=== PATIENT | female | born 1975 | race Caucasian/White ===

== ENCOUNTER 2019-10-27 21:45 | Emergency (ER) | payer OTHER, SELFPAY ==
[2019-10-27 22:03] VITALS: BP 122/73; PULSE 77; RESP 13; TEMP 36.8; O2SAT 95
[2019-10-27] MEDS: ONDANSETRON INJ 4 MG/2 ML VIAL IV PUSH (23:04)
[2019-10-27] MEDS: SODIUM CHLORIDE 0.9% IV 1,000 ML 999 ML IV CONT (23:04)
[2019-10-27 23:08] LABS: Basophils Absolute Auto 0.03 K/mm3 (0.00-0.10); Basophils Percent Auto 0.3 % (0.0-1.0); Hematocrit 39.3 % (35.0-49.0); Hemoglobin 13.9 g/dL (12.0-15.0); Immature Granulocyte Absolute 0.03 K/mm3 (0.00-0.00); Immature Granulocyte Percent A 0.3 % (0.0-0.0); Lymphocytes Absolute Auto 0.56 K/mm3 (1.10-4.50); Lymphocytes Percent Auto 6.5 % (18.0-42.0); Mean Corpuscular HGB Conc 35.4 g/dL (32.0-36.0); Mean Corpuscular Hemoglobin 32.1 pg (27.0-31.0); Mean Corpuscular Volume 90.8 fL (78.0-102.0); Mean Platelet Volume 10.6 fl (9.2-11.8); Monocytes Absolute Auto 0.16 K/mm3 (0.10-0.90); Monocytes Percent Auto 1.9 % (2.0-11.0); Neutrophils Absolute Auto 7.8 K/mm3 (1.7-7.2); Platelet Count Result 227 K/mm3 (150-420); Red Blood Count 4.33 M/mm3 (4.20-5.40); White Blood Count 8.6 K/mm3 (4.8-10.8)
[2019-10-27 23:25] LABS: Alanine Aminotransferase 17 U/L (14-59); Albumin Level 4.5 g/dL (3.4-5.0); Alkaline Phosphatase 64 U/L (46-116); Anion Gap 15.8 mmol/L (7-16); Aspartate Amino Transferase 21 U/L (15-37); Bilirubin,Total 0.5 mg/dL (0.00-1.00); Blood Urea Nitrogen 16 mg/dL (7-18); Calcium 8.7 mg/dL (8.5-10.1); Carbon Dioxide 25 mmol/L (21-32); Chloride 100 mmol/L (98-108); Estimated CRCL calculation 51 ml/min; Estimated Glomerular Filt Rate > 60; Glucose 117 mg/dL (70-99); Osmolality Calculated 286 mOsm/kg (285-295); Potassium 3.8 mmol/L (3.5-5.1); Sodium 137 mmol/L (136-145); Total Protein 7.8 g/dL (6.4-8.2)
[2019-10-27] MEDS: PANTOPRAZOLE SODIUM IV 40 MG VIAL IV PUSH (23:34)
--- NOTE | 2019-10-27 23:35 | ED.GENADULT ---
HPI - General Adult General Chief complaint: Nausea/Vomiting/Diarrhea Stated complaint: throwing up, fever Time Seen by Provider: 10/27/19 22:20 Source: patient Mode of arrival: ambulatory Limitations: no limitations History of Present Illness HPI narrative: Pavel is a very pleasant 44-year-old female patient. She presents ambulatory to the emergency room. She states that she started feeling sick at about 6:00 p.m.. She had nausea and vomiting. There is no history of diarrhea. She feels congested. She felt that she had fever the in the emergency room a temperature was noted to be 36.8? C only which is 98.2? F she denies any abdominal pain. No other complaint Onset (ago): hour(s) ( started around 6:00 p.m.) Severity: moderate Pain Consistency: other ( no pain) Relieving factors: none Exacerbating factors: none Associated symptoms: other ( see HPI narrative) Treatments prior to arrival: none Related Data Allergies Allergy/AdvReac Type Severity Reaction Status Date / Time No Known Allergies Allergy Unknown Unverified 09/01/19 15:47 Review of Systems Review of Systems: All systems reviewed & are unremarkable except as noted in HPI and below Constitutional: Constitutional: Reports as per HPI, Reports no additional constitutional complaints, Denies chills and Denies fever(s) Eyes: Eyes: Reports as per HPI and Denies change in vision ENT: Reports system reviewed and no additional complaints, except as documented, Reports nasal congestion and Denies sore throat Cardiovascular: Cardiovascular: Reports as per HPI, Reports no additional cardiovascular complaints, Denies chest pain and Denies radiating jaw, neck or arm pain Respiratory: Respiratory: Reports as per HPI, Reports no additional respiratory complaints, Denies cough and Denies dyspnea Gastrointestinal: Gastrointestinal: Reports as per HPI, Reports nausea and Reports vomiting Genitourinary: Genitourinary: Reports no additional female genitourinary complaints, Denies hematuria and Denies dysuria Musculoskeletal: Musculoskeletal: Reports no additional musculoskeletal complaints and Denies back pain Integumentary/Breasts: Skin/Breast: Reports system reviewed and no additional complaints, except as docu, Denies erythema and Denies rash Neurologic: Reports system reviewed and no additional complaints, except as documented, Reports as per HPI, Denies vertigo, Denies syncope, Denies headache(s), Denies focal weakness and Denies numbness Psychiatric: Psychiatric: Reports no additional psychiatric complaints Endocrine: Endocrine: Reports no additional endocrine complaints and Denies polydipsia Hematologic/Lymphatic: Hematologic/Lymphatic: Reports no additional hematologic/lymphatic complaints, Denies easy bleeding and Denies easy bruising Allergic/Immunologic: Allergic/Immunologic: Reports no additional allergic/immunologic complaints, Denies lip swelling and Denies tongue swelling PMFSH Past Medical History Medical History (Updated 10/28/19 @ 00:17 by Olivier Hendrix MD) No acute medical problems Surgical History Surgical History (Updated 10/27/19 @ 23:44 by Olivier Hendrix MD) History of partial thyroidectomy Family History Family History (System 09/01/19 @ 15:47 by Bessy Sales) Other Diabetes mellitus Family history of coronary artery disease Family history of malignant neoplasm of breast Social History Social History (System 09/01/19 @ 15:47 by Bessy Sales) Smoking status: Never smoker Alcohol intake: current Exam Const: General: no acute distress ( mild distress) and alert; No diaphoretic Nutritional Appearance: well nourished and thin Orientation/consciousness: patient oriented x3 Limitations: no limitations HENMT: Ears: TM's normal bilaterally and EAC's normal General nose exam: Normal nares present ( nasal congestion) Mouth: Yes dry mucous membranes Eyes: Conjunctivae: conjunctivae normal Pupils: Equal
[2019-10-28 00:06] LABS: Influenza Control Valid (Valid)
[2019-10-28] MEDS: DEXAMETHASONE SOD PHOS INJ 4 MG/ML VIAL IV PUSH (00:23)
[2019-10-28 00:24] VITALS: BP 98/54; PULSE 77; RESP 12; O2SAT 96
[2019-10-28] MEDS: METOCLOPRAMIDE HCL INJ 10 MG/2 ML VIAL 5 MG IV PUSH (00:24)
== END 2019-10-28 00:31 | disposition home or self-care (01) ==
PROVIDERS: Emergency Provider Surgery; PCP Family Medicine
DX: B34.9 Viral infection, unspecified (principal)
CPT/HCPCS: 36415; 80053; 85025; 87081; 87804; 87880; 96361; 96374; 96375; 99283; 99284; C9113; J1100; J2405; J2765; J7030

== ENCOUNTER 2020-01-02 07:38 | Outpatient (CLI) | payer OTHER, SELFPAY ==
[2020-01-02 08:02] LABS: Basophils Absolute Auto 0.1 K/mm3 (0.0-0.1); Basophils Percent Auto 1.3 % (0.2-1.2); Eosinophils Absolute Auto 0.1 K/mm3 (0-0.3); Eosinophils Percent Auto 2.9 % (0-4.4); Hemoglobin 14.9 g/dL (12.0-15.0); Immature Granulocyte Absolute 0.01 K/mm3 (0.00-0.031); Immature Granulocyte Percent A 0.3 % (0-0.5); Lymphocytes Absolute Auto 1.15 K/mm3 (0.9-3.2); Mean Corpuscular HGB Conc 34.7 g/dl (32-36); Mean Corpuscular Hemoglobin 31.8 pg (26-34); Mean Corpuscular Volume 91.9 fl (80-100); Mean Platelet Volume 10.8 fl (7.4-10.4); Monocytes Absolute Auto 0.4 K/mm3 (0.1-0.6); Monocytes Percent Auto 9.1 % (2.6-8.5); Neutrophils Absolute Auto 2.2 K/mm3 (1.3-6.7); Neutrophils Percent Auto 56.4 % (45.5-73.1); Platelet Count Result 201 k/mm3 (150-375); Red Blood Count 4.68 M/mm3 (4.2-5.4); Red Cell Distribution Width 12.3 % (11.5-14.5); White Blood Count 3.8 K/mm3 (4.5-10.0)
[2020-01-02 08:52] LABS: Alanine Aminotransferase 11 U/L (4-35); Albumin Level 4.7 g/dL (3.5-5.1); Alkaline Phosphatase 61 U/L (38-126); Amylase 94 U/L (30-110); Aspartate Amino Transferase 23 U/L (14-36); Blood Urea Nitrogen 6 mg/dL (7-17); Calcium 9.6 mg/dL (8.4-10.2); Carbon Dioxide 28 mmol/L (22-30); Chloride 99 mmol/L (98-107); Estimated Glomerular Filt Rate > 60; Glucose 141 mg/dL (65-105); Lipase 45 U/L (23-300); Potassium 4.1 mmol/L (3.4-5.0); Sodium 136 mmol/L (137-145)
[2020-01-02 11:05] LABS: Folic Acid 18.3 ng/mL (2.76->20)
== END 2020-01-02 07:39 | disposition home or self-care (01) ==
PROVIDERS: PCP Family Medicine; Visit Provider Nurse Practitioner Family
DX: R10.9 Unspecified abdominal pain (principal); R11.2 Nausea with vomiting, unspecified; R63.4 Abnormal weight loss
CPT/HCPCS: 36415; 80053; 82150; 82607; 82746; 83036; 83690; 84443; 85025

== ENCOUNTER 2020-01-13 07:20 | Outpatient (CLI) | payer OTHER, SELFPAY ==
--- NOTE | ~2020-01-13 | CT_ITS ---
EXAMINATION: CT abdomen pelvis w con DATE: 01/13/2020 07:59 INDICATION: Generalized abdominal pain. Abnormal weight loss. TECHNIQUE: Computed tomography (CT) of the abdomen and pelvis was performed with 100 mL Omnipaque 350 intravenous contrast. Automated exposure control and iterative reconstruction technique were employe d. The dose-length product was 162.16 mGy-cm. COMPARISON: Abdomen ultrasound 09/08/2019 FINDINGS: The visualized portions of the lung bases are clear without pneumonia or pleural effusion. The heart size is normal. No pericardial effusion. The liver, gallbladder, spleen, pancreas, adrenal glands, and right kidney are normal. There is a small area of focal volume loss of left kidney. The p eriuterine veins and left ovarian vein are enlarged, consistent with pelvic venous insufficiency. The re are no dilated loops of bowel. The appendix is not visualized. The bladder is distended. There are no pathologically enlarged lymph nodes. There is trace pelvic ascites. The bones are unremarkable. IMPRESSION: 1. Pelvic venous insufficiency. Reviewed, dictated and finalized at location A.
== END 2020-01-13 07:21 | disposition home or self-care (01) ==
LOC: ANHIMG 07:28
PROVIDERS: PCP Family Medicine; Visit Provider Nurse Practitioner Family
DX: R10.9 Unspecified abdominal pain (principal); R63.4 Abnormal weight loss; R11.0 Nausea; R19.5 Other fecal abnormalities; I99.8 Other disorder of circulatory system
CPT/HCPCS: 74177; Q9967

== ENCOUNTER 2020-02-07 00:20 | Outpatient (CLI) | payer OTHER, SELFPAY ==
[2020-02-07 16:46] LABS: SARS-CoV-2 RNA PCR Negative
== END 2020-02-07 00:21 | disposition home or self-care (01) ==
LOC: ANHCOVIDDT 00:20
PROVIDERS: PCP Family Medicine; Visit Provider Internal Medicine Gastroenterology
DX: Z01.818 Encounter for other preprocedural examination (principal); Z11.59 Encounter for screening for other viral diseases
CPT/HCPCS: 87635; C9803; U0003

== ENCOUNTER 2020-02-10 01:10 | Day surgery (SDC) | payer OTHER, SELFPAY ==
[2020-02-03 08:39] VITALS: BMI 15.4
[2020-02-10 07:57] VITALS: BMI 15.5
[2020-02-10 07:58] VITALS: BP 104/67; PULSE 40; RESP 13; TEMP 36.3; O2SAT 98
[2020-02-10] MEDS: LACTATED RINGERS 1,000 ML 150 ML IV CONT (08:12)
--- NOTE | 2020-02-10 08:30 | P.PNAN_ITS ---
Anes - Initial Pre Proc Eval Procedure: Operation Date: 02/10/20 09:00 Proposed Procedures p Esophagogastroduodenoscopy & Colonoscopy - Anatoly May MD Date/Time: 02/10/20 08:30 Surgeon: Anatoly May MD Pre Op Diagnosis: wt. loss, rectal bleeding Patient Data Age: 44 Gender: F Height: 5 ft 5 in Weight: 42.2 kg Last Vital Signs Temp 36.3 C L 02/10/20 07:58 Pulse 40 L 02/10/20 07:58 Resp 13 02/10/20 07:58 BP 104/67 02/10/20 07:58 Pulse Ox 98 02/10/20 07:58 Allergies Allergy/AdvReac Type Severity Reaction Status Date / Time No Known Allergies Allergy Unknown Verified 02/10/20 07:46 Home Medications Medication Instructions Recorded Confirmed Type metoclopramide HCl 5 mg tablet 5 mg PO DAILY #90 tablet 01/05/20 02/10/20 Rx Patient hx anesthesia problems: none Family hx anesthesia problems: none [facility] Past Medical History Medical History No acute medical problems Occult blood positive stool Surgical History Surgical History History of partial thyroidectomy Family History Family History Other Diabetes mellitus Family history of coronary artery disease Family history of malignant neoplasm of breast Social History Social History Smoking status: Never smoker Alcohol intake: current Anes - Eval Final PreProcedure Day of Procedure 02/10/20 08:30 Patient weight: thin Heart: regular rate and rhythm Lungs: clear to auscultation Airway: Mallampati scale class II Neurological: alert and oriented Last oral intake: >/= 8 hours ASA classification: II Emergent: no Anesthetic plan: proceed Anesthesia type and monitoring: general GIVS and standard monitoring Informed Consent: The patient's anesthetic plan and its attendant risks and benefits were discussed with the patient/family/POA. Questions were solicited and answers provided to the satisfaction of the patient/family/POA.
--- NOTE | 2020-02-10 09:06 | WPDHPUPDATE1 ---
History and Physical Update Update Date/Time: 02/10/20 09:06 History and Physical has been reviewed, including an updated exam of the patient. There are NO changes in the patient's condition. Risks, benefits, and alternatives have been discussed and questions answered. Patient agrees to proceed with procedure.
--- NOTE | 2020-02-10 09:51 | SUR.OPER ---
EGD START 918, END 923 COLONOSCOPY START 929, END 948
[2020-02-10 09:55] VITALS: BP 82/52; PULSE 63; RESP 20; O2SAT 100
[2020-02-10 10:05] VITALS: BP 84/56; PULSE 61; RESP 20; O2SAT 100
[2020-02-10 10:15] VITALS: BP 93/61; PULSE 64; RESP 20; O2SAT 100
== END 2020-02-10 10:30 | disposition home or self-care (01) ==
PROVIDERS: PCP Family Medicine; Visit Provider Internal Medicine Gastroenterology
PROC: 0DJ08ZZ Inspection of Upper Intestinal Tract, Via Natural or Artificial Opening Endoscopic (ICD-10-PCS; CPT 43235; principal; 2020-02-10 09:00)
DX: K92.1 Melena (principal); K64.8 Other hemorrhoids; R63.4 Abnormal weight loss; K29.70 Gastritis, unspecified, without bleeding
CPT/HCPCS: 45378; 43239; 88305; J2001; J2704; J7120

== ENCOUNTER 2020-02-17 07:38 | Outpatient (CLI) | payer OTHER, SELFPAY ==
--- NOTE | ~2020-02-17 | NM_ITS ---
EXAM: NM gastric emptying study DATE: 02/17/2020 13:46 INDICATION: Nausea. TECHNIQUE: A gastric emptying study was performed using the methodology of Dusty JAY, et al. J Nucl Med 2007; 48:568-572. The patient was given a meal consisting of 2 scrambled eggs labeled with 1 mCi Tc-99m sulfur colloid, 2 slices of toast, two packages of jam, and approximately 120 mL of water. Si multaneous anterior and posterior 1-min images of the abdomen were obtained with the patient supine a t multiple time points over a total period of 4 hours. The geometric mean of anterior and posterior v iews was determined, and the percentage retention was calculated for each time point. COMPARISON: CT abdomen and pelvis 01/13/2020 FINDINGS: Gastric retention of the radiotracer-labeled meal was 54%, 16%, and 3% at the 1-hour, 2-ho ur, and 4-hour time points, respectively. With this technique, apparent rapid gastric emptying is sug gested by <30% gastric retention at 1 hour. Delayed gastric emptying is defined by gastric retention of >90% at 1 hour, >60% retention at 2 hours, or >10% retention at 4 hours. IMPRESSION: 1. Normal gastric emptying. Reviewed, dictated and finalized at location A. IMPRESSION: 1. Normal gastric emptying.
== END 2020-02-17 07:39 | disposition home or self-care (01) ==
PROVIDERS: PCP Family Medicine; Visit Provider Internal Medicine Gastroenterology
DX: R11.0 Nausea (principal)
CPT/HCPCS: 78264; A9541

== ENCOUNTER 2020-05-07 07:45 | Outpatient (CLI) | payer OTHER, SELFPAY ==
[2020-05-07 08:01] LABS: Basophils Absolute Auto 0.1 K/mm3 (0.0-0.1); Basophils Percent Auto 1.5 % (0.2-1.2); Eosinophils Absolute Auto 0.1 K/mm3 (0-0.3); Eosinophils Percent Auto 1.8 % (0-4.4); Hematocrit 41.2 % (37.0-47.0); Hemoglobin 14.4 g/dL (12.0-15.0); Lymphocytes Absolute Auto 1.47 K/mm3 (0.9-3.2); Mean Corpuscular Hemoglobin 32.3 pg (26-34); Mean Corpuscular Volume 92.4 fl (80-100); Mean Platelet Volume 9.9 fl (7.4-10.4); Monocytes Absolute Auto 0.2 K/mm3 (0.1-0.6); Monocytes Percent Auto 7.3 % (2.6-8.5); Neutrophils Absolute Auto 1.5 K/mm3 (1.3-6.7); Neutrophils Percent Auto 44.4 % (45.5-73.1); Platelet Count Result 258 k/mm3 (150-375); Red Blood Count 4.46 M/mm3 (4.2-5.4); Red Cell Distribution Width 11.9 % (11.5-14.5); White Blood Count 3.3 K/mm3 (4.5-10.0)
[2020-05-07 08:13] LABS: Anion Gap 5 mmol/L (8-16); Blood Urea Nitrogen 9 mg/dL (7-17); Calcium 9.4 mg/dL (8.4-10.2); Carbon Dioxide 32 mmol/L (22-30); Chloride 101 mmol/L (98-107); Estimated Glomerular Filt Rate 54; Glucose 92 mg/dL (65-105); Potassium 4.6 mmol/L (3.4-5.0); Sodium 138 mmol/L (137-145)
[2020-05-10 10:20] LABS: FSH 11.8 mIU/mL (***); LH 8.1 mIU/mL (***)
[2020-05-12 08:03] LABS: Testosterone Total 28 ng/dL (2-45)
[2020-05-12 23:26] LABS: Estrogen 181.4 pg/mL
[2020-05-13 19:53] LABS: Estradiol, Ultrasensitive 20 pg/mL
== END 2020-05-07 07:46 | disposition home or self-care (01) ==
LOC: ANHLAB 07:46
PROVIDERS: PCP Family Medicine; Visit Provider Nurse Practitioner Family
DX: R63.4 Abnormal weight loss (principal); N92.6 Irregular menstruation, unspecified; N91.2 Amenorrhea, unspecified
CPT/HCPCS: 36415; 80048; 82533; 82670; 82672; 83001; 83002; 84403; 84443; 85025

== ENCOUNTER 2020-05-10 20:13 | Emergency (ER) | payer OTHER, SELFPAY ==
[2020-05-10 20:16] VITALS: RESP 14
[2020-05-10 20:26] VITALS: BP 96/72; PULSE 105; RESP 17; TEMP 36.6; O2SAT 99
[2020-05-10 20:45] LABS: Add Urine Microscopic? YES; Appearance Urine Clear (Clear); Bilirubin Urine Negative (Negative); Blood Urine 1+ (Negative); Color Urine Straw (Yellow); Glucose Urine UA Negative (Negative); Ketones Urine Trace mg/dL (Negative); Leukocyte Esterase Ur Negative LEU/UL (Negative); Mucus Urine Rare /lpf; Nitrate Urine Negative (Negative); Protein Urine Negative (Negative); RBC Urine 0-2 /hpf (0-2); Specific Grav Ur 1.008 (1.001-1.035); Squamous Epithelial Cell Urine Rare /hpf (Few); Urobilinogen Urine Negative mg/dL (<2.0); WBC Urine 0-3 /hpf
--- NOTE | 2020-05-10 21:47 | ED.GENADULT ---
HPI - General Adult General Chief complaint: Nausea/Vomiting/Diarrhea Stated complaint: nausea Time Seen by Provider: 05/10/20 21:41 Source: patient History of Present Illness HPI narrative: Patient is a 44 y/o female complaining of watery diarrhea starting today. She states that she had approximately 6 episodes of diarrhea. There is no alleviating or exacerbating factor. She has some nausea, but no vomiting. She has some mild lower abdominal pain. She has no fever. Related Data Allergies Allergy/AdvReac Type Severity Reaction Status Date / Time No Known Allergies Allergy Unknown Verified 05/10/20 20:14 Review of Systems Constitutional: Constitutional: Denies chills, Denies fever(s), Denies headache(s) and Denies weakness Eyes: Eyes: Denies blurry vision ENT: Denies headache(s) and Denies neck pain Cardiovascular: Cardiovascular: Denies chest pain and Denies dyspnea Respiratory: Respiratory: Denies cough and Denies dyspnea Gastrointestinal: Gastrointestinal: Reports abdominal pain, Reports diarrhea, Reports nausea and Denies vomiting Genitourinary: Genitourinary: Denies hematuria and Denies dysuria Musculoskeletal: Musculoskeletal: Denies back pain and Denies neck pain Neurologic: Denies headache(s) and Denies weakness PMFSH Past Medical History Medical History No acute medical problems Occult blood positive stool Surgical History Surgical History History of partial thyroidectomy Family History Family History Other Diabetes mellitus Family history of coronary artery disease Family history of malignant neoplasm of breast Social History Social History Smoking status: Never smoker Alcohol intake: current Gender identity (if verbalized by the patient): Female Exam Const: General: no acute distress and well developed Orientation/consciousness: oriented to person, oriented to place, oriented to time and patient oriented x3 HENMT: Head: normocephalic Ears: external ears normal General nose exam: Normal external nose present Eyes: General: appearance normal, both eyes and all related structures Conjunctivae: conjunctivae normal Neck: Neck: normal visual inspection and full ROM Chest: Chest palpation & inspection: normal inspection of the chest and no tenderness Resp: Effort & Inspection: normal respiratory effort Auscultation: clear to auscultation bilaterally Cardio: Rate: regular rate Rhythm: regular rhythm GI: GI Palp: No abdominal tenderness and Yes Soft to palpation Skin: General skin exam: normal color and turgor normal Neuro: General: oriented to person, oriented to place, oriented to time and patient oriented x3 Cognition (Neuro): normal cognition Extrem: General: normal to inspection, full ROM and no pedal edema Psych: Appearance: grossly normal Mental Status: mental status grossly normal Affect: normal affect Course Vital Signs Vital signs: Vital Signs Respiratory Rate 14 05/10/20 20:16 Temperature 36.8 C 05/10/20 23:48 Pulse Rate 66 05/10/20 23:48 Respiratory Rate 16 05/10/20 23:48 Blood Pressure 101/74 05/10/20 23:48 Pulse Oximetry 100 05/10/20 23:48 Medical Decision Making Vital Signs Vital Signs: Vital Signs Respiratory Rate 14 05/10/20 20:16 Temperature 36.8 C 05/10/20 23:48 Pulse Rate 66 05/10/20 23:48 Respiratory Rate 16 05/10/20 23:48 Blood Pressure 101/74 05/10/20 23:48 Pulse Oximetry 100 05/10/20 23:48 Lab Data Result diagrams: 05/10/20 22:00 05/10/20 22:00 Labs: Lab Results 05/10/20 05/10/20 05/10/20 Range/Units 20:31 22:00 22:00 WBC 9.0 (4.5-10.0) K/mm3 RBC 5.07 (4.2-5.4) M/mm3 Hgb 16.3 H (12.0-15.0) g/dL Hct 46.5 (37.0-47.0)
[2020-05-10] MEDS: SODIUM CHLORIDE 0.9% IV 1,000 ML 999 ML IV CONT (21:57)
[2020-05-10 21:58] VITALS: BP 97/77; PULSE 71; RESP 20; O2SAT 99
[2020-05-10 22:05] LABS: Basophils Percent Auto 0.3 % (0.2-1.2); Hematocrit 46.5 % (37.0-47.0); Hemoglobin 16.3 g/dL (12.0-15.0); Immature Granulocyte Absolute 0.02 K/mm3 (0.00-0.031); Immature Granulocyte Percent A 0.2 % (0-0.5); Lymphocytes Absolute Auto 0.54 K/mm3 (0.9-3.2); Mean Corpuscular HGB Conc 35.1 g/dl (32-36); Mean Corpuscular Hemoglobin 32.1 pg (26-34); Mean Corpuscular Volume 91.7 fl (80-100); Mean Platelet Volume 10.1 fl (7.4-10.4); Monocytes Absolute Auto 0.3 K/mm3 (0.1-0.6); Monocytes Percent Auto 3.3 % (2.6-8.5); Neutrophils Absolute Auto 8.2 K/mm3 (1.3-6.7); Neutrophils Percent Auto 90.2 % (45.5-73.1); Platelet Count Result 261 k/mm3 (150-375); Red Blood Count 5.07 M/mm3 (4.2-5.4); Red Cell Distribution Width 12.1 % (11.5-14.5)
[2020-05-10 22:22] LABS: Alanine Aminotransferase 14 U/L (4-35); Alkaline Phosphatase 73 U/L (38-126); Anion Gap 9 mmol/L (8-16); Aspartate Amino Transferase 24 U/L (14-36); Bilirubin,Total 0.8 mg/dL (0.2-1.3); Blood Urea Nitrogen 8 mg/dL (7-17); Calcium 9.5 mg/dL (8.4-10.2); Carbon Dioxide 28 mmol/L (22-30); Chloride 99 mmol/L (98-107); Estimated CRCL calculation 51 ml/min; Estimated Glomerular Filt Rate > 60; Glucose 102 mg/dL (65-105); Lipase 35 U/L (23-300); Potassium 4.2 mmol/L (3.4-5.0); Sodium 136 mmol/L (137-145)
[2020-05-10] MEDS: LOPERAMIDE HCL 2 MG CAPSULE PO (22:38)
[2020-05-10 22:40] VITALS: BP 94/53; PULSE 65; RESP 18; O2SAT 100
[2020-05-10 23:48] VITALS: BP 101/74; PULSE 66; RESP 16; TEMP 36.8; O2SAT 100
== END 2020-05-10 23:50 | disposition home or self-care (01) ==
PROVIDERS: Emergency Medicine; Emergency Provider Emergency Medicine; PCP Family Medicine
DX: K52.9 Noninfective gastroenteritis and colitis, unspecified (principal); E89.0 Postprocedural hypothyroidism
CPT/HCPCS: 36415; 80053; 81001; 81025; 83690; 85025; 96360; 99283; A9270; J7030

== ENCOUNTER 2020-05-18 11:44 | Outpatient (CLI) | payer OTHER, SELFPAY ==
[2020-05-18 12:42] LABS: Hematocrit 41.1 % (37.0-47.0); Hemoglobin 14.3 g/dL (12.0-15.0); Mean Corpuscular HGB Conc 34.8 g/dl (32-36); Mean Corpuscular Hemoglobin 31.8 pg (26-34); Mean Corpuscular Volume 91.5 fl (80-100); Mean Platelet Volume 10.1 fl (7.4-10.4); Platelet Count Result 294 k/mm3 (150-375); Red Blood Count 4.49 M/mm3 (4.2-5.4); White Blood Count 4.7 K/mm3 (4.5-10.0)
[2020-05-18 12:50] LABS: Alanine Aminotransferase 12 U/L (4-35); Albumin Level 4.5 g/dL (3.5-5.1); Alkaline Phosphatase 59 U/L (38-126); Anion Gap 6 mmol/L (8-16); Aspartate Amino Transferase 24 U/L (14-36); Bilirubin,Total 0.5 mg/dL (0.2-1.3); Blood Urea Nitrogen 8 mg/dL (7-17); CRP < 0.5 mg/dL (<1.0); Calcium 9.3 mg/dL (8.4-10.2); Carbon Dioxide 34 mmol/L (22-30); Chloride 99 mmol/L (98-107); Estimated Glomerular Filt Rate > 60; Glucose 71 mg/dL (65-105); Potassium 4.6 mmol/L (3.4-5.0); Sodium 139 mmol/L (137-145)
[2020-05-18 12:52] LABS: Rheumatoid Factor < 8.6 IU/ML (<12)
[2020-05-18 13:48] LABS: Erythrocyte Sedimentation Rate 8 mm/hr (0-20)
[2020-05-21 11:09] LABS: ANA Cascade Screen Positive (Negative)
[2020-05-21 15:37] LABS: Chromatin (Nucleosomal) Ab <1.0; RNP Antibody 7.1; Sm Antibody <1.0; Sm/RNP Antibody <1.0
== END 2020-05-18 11:45 | disposition home or self-care (01) ==
LOC: ANHLAB 11:45
PROVIDERS: PCP Family Medicine; Visit Provider Nurse Practitioner Family
DX: R63.4 Abnormal weight loss (principal); R77.9 Abnormality of plasma protein, unspecified
CPT/HCPCS: 36415; 80048; 80076; 85027; 85652; 86038; 86140; 86225; 86235; 86430

== ENCOUNTER 2020-08-10 14:08 | Outpatient (CLI) | payer OTHER, SELFPAY ==
[2020-08-10 15:43] LABS: Creatine Kinase 53 U/L (30-135)
[2020-08-10 16:06] LABS: Complement C3 66 mg/dL (88-165)
[2020-08-13 20:22] LABS: Anti Cardio Antibody IgM 14 MPL (<=12); Anti Cardiolipin Antibody IgA <11 APL (<=11); Anti Cardiolipin Antibody IgG <14 GPL (<=14)
[2020-08-14 04:01] LABS: Lupus dRVVT 1:1 Mix Interpreta Not Indicated; Lupus dRVVT Screen 28 sec (<=45); PTT-LA Screen 32 sec (<=40)
[2020-08-14 05:55] LABS: CA-125 6 U/mL (<35)
[2020-08-14 12:54] LABS: CA 19-9 17 U/mL (<34)
[2020-08-14 21:34] LABS: Scleroderma 70 Antibody <1.0
[2020-08-15 20:49] LABS: ANCA Screen Negative (Negative); Myeloperoxidase Ab <1.0 AI (<1.0); Proteinase-3 Ab <1.0 AI (<1.0); S cerevisiae Ab (IgA) 4.2 U (<=20.0); S cerevisiae Ab (IgG) 8.7 U (<=20.0)
[2020-08-15 21:27] LABS: Albumin 4.8 g/dL (3.8-4.8); Alpha 1 Globulin 0.3 g/dL (0.2-0.3); Alpha 2 Globulin 0.6 g/dL (0.5-0.9); Beta 1 Globulin 0.5 g/dL (0.4-0.6); Gamma Globulin 1.3 g/dL (0.8-1.7); Protein, Total 7.6 g/dL (6.1-8.1)
[2020-08-17 13:23] LABS: Aldolase 6.7 U/L (<=8.1)
[2020-08-18 14:37] LABS: Angiotensin Converting Enzyme 50 U/L (9-67)
[2020-08-19 20:38] LABS: Creatinine, Random Urine 58 mg/dL (20-275); Total Protein/Creatinine Ratio 69 mg/g creat (21-161)
== END 2020-08-10 14:09 | disposition home or self-care (01) ==
PROVIDERS: PCP Family Medicine; Visit Provider Internal Medicine
DX: R63.4 Abnormal weight loss (principal); R76.8 Other specified abnormal immunological findings in serum; R19.5 Other fecal abnormalities
CPT/HCPCS: 36415; 82085; 82164; 82550; 82570; 84155; 84156; 84165; 84166; 85613; 85730; 86021; 86146; 86147; 86160; 86235; 86301; 86304; 86671

== ENCOUNTER 2020-09-21 11:31 | Outpatient (CLI) | payer OTHER, SELFPAY ==
[2020-09-21 11:56] LABS: Basophils Absolute Auto 0.1 K/mm3 (0.0-0.1); Basophils Percent Auto 1.3 % (0.2-1.2); Eosinophils Absolute Auto 0.1 K/mm3 (0-0.3); Eosinophils Percent Auto 1.5 % (0-4.4); Hematocrit 42.1 % (37.0-47.0); Hemoglobin 14.3 g/dL (12.0-15.0); Immature Granulocyte Absolute 0.01 K/mm3 (0.00-0.031); Immature Granulocyte Percent A 0.2 % (0-0.5); Lymphocytes Percent Auto 39.8 % (18.3-44.2); Mean Corpuscular Volume 94.2 fl (80-100); Mean Platelet Volume 10.3 fl (7.4-10.4); Monocytes Absolute Auto 0.4 K/mm3 (0.1-0.6); Monocytes Percent Auto 8.6 % (2.6-8.5); Neutrophils Absolute Auto 2.2 K/mm3 (1.3-6.7); Neutrophils Percent Auto 48.6 % (45.5-73.1); Platelet Count Result 248 k/mm3 (150-375); Red Blood Count 4.47 M/mm3 (4.2-5.4); Red Cell Distribution Width 12.4 % (11.5-14.5); White Blood Count 4.5 K/mm3 (4.5-10.0)
[2020-09-21 11:58] LABS: Add Urine Microscopic? NO; Appearance Urine Clear (Clear); Bilirubin Urine Negative (Negative); Blood Urine Negative (Negative); Color Urine Colorless (Yellow); Glucose Urine UA Negative (Negative); Ketones Urine Negative (Negative); Leukocyte Esterase Ur Negative LEU/UL (Negative); Nitrate Urine Negative (Negative); Protein Urine Negative (Negative); Specific Grav Ur 1.009 (1.001-1.035); Urobilinogen Urine Negative mg/dL (<2.0)
[2020-09-21 12:11] LABS: Alanine Aminotransferase 17 U/L (4-35); Albumin Level 4.2 g/dL (3.5-5.1); Alkaline Phosphatase 57 U/L (38-126); Anion Gap 7 mmol/L (8-16); Aspartate Amino Transferase 26 U/L (14-36); Bilirubin,Total 0.5 mg/dL (0.2-1.3); Blood Urea Nitrogen 10 mg/dL (7-17); CRP < 0.5 mg/dL (<1.0); Calcium 9.2 mg/dL (8.4-10.2); Carbon Dioxide 32 mmol/L (22-30); Chloride 98 mmol/L (98-107); Estimated Glomerular Filt Rate > 60; Glucose 69 mg/dL (65-105); Potassium 4.1 mmol/L (3.4-5.0); Sodium 137 mmol/L (137-145)
[2020-09-21 12:16] LABS: Complement C3 71 mg/dL (88-165)
[2020-09-21 12:25] LABS: Beta HCG Quantitative < 2.39 mIU/ML
[2020-09-21 12:50] LABS: Erythrocyte Sedimentation Rate 4 mm/hr (0-20)
[2020-09-25 14:54] LABS: FSH 9.7 mIU/mL (***); LH 2.1 mIU/mL (***); Prolactin 68.9 ng/mL (***)
[2020-09-29 22:13] LABS: Estradiol, Ultrasensitive 13 pg/mL
== END 2020-09-21 11:32 | disposition home or self-care (01) ==
PROVIDERS: PCP Family Medicine; Referring Provider Obstetrics & Gynecology; Visit Provider Internal Medicine
DX: R76.8 Other specified abnormal immunological findings in serum (principal); R63.4 Abnormal weight loss; M19.90 Unspecified osteoarthritis, unspecified site; N92.6 Irregular menstruation, unspecified
CPT/HCPCS: 36415; 80053; 81003; 82670; 83001; 83002; 84146; 84702; 85025; 85652; 86140; 86160

== ENCOUNTER → 2020-09-23 10:54 | Outpatient (CLI) | payer OTHER, SELFPAY ==
--- NOTE | ~2020-09-23 | CT_ITS ---
EXAMINATION: CT chest w con EXAM DATE: 09/23/2020 11:25 INDICATION: Abn wt loss- 20lbs in 4.5mo. TECHNIQUE: Spiral CT of the chest following intravenous injection of 75 mL Omnipaque 350. Axial, cor onal and sagittal images were reviewed. Coronal maximum intensity pixel images of chest reviewed. Angela qureshi dose-length product (DLP) for this examination was 152.51 mGy-cm. The exposure was tailored accor ding to patient size (auto mA exposure control), and iterative reconstruction (ASIR) was used as evelyne tional dose reduction technique. There is no prior study for comparison. FINDINGS: The lungs are clear. There is mild hyperinflation. There are no pleural or pericardial eff usions. Tracheobronchial tree is patent. There is no mediastinal, hilar or axillary lymphadenopat hy. There is no pneumothorax. Heart normal in size. No evidence of coronary arterial calcificat ion. Upper abdomen is unremarkable. There is thoracic spondylosis without osteoblastic or osteolyt ic lesions identified. Left thyroidectomy. IMPRESSION: 1. Mild hyperinflation. Reviewed, dictated and finalized at location A. OR BOAT PILOT IMPRESSION: 1. Mild hyperinflation.
== END ==
PROVIDERS: PCP Family Medicine; Visit Provider Internal Medicine Hematology & Oncology
DX: R06.02 Shortness of breath (principal); R91.8 Other nonspecific abnormal finding of lung field
CPT/HCPCS: 71260; Q9967

== ENCOUNTER → 2020-10-19 11:05 | Outpatient (CLI) | payer OTHER, SELFPAY ==
--- NOTE | ~2020-10-19 | MM_ITS ---
EXAMINATION: MM screening cinthya BI w francoise HISTORY: Screening mammogram TECHNIQUE: Craniocaudal and mediolateral oblique 3-D tomosynthesis images were obtained and synthetic 2-D images were generated. CAD analysis was submitted and interpreted. COMPARISON: None, baseline BREAST PARENCHYMAL COMPOSITION: The breasts are extremely dense, which lowers the sensitivity of mamm ography. FINDINGS: There is no evidence of suspicious mass, calcification, or architectural distortion to sugg est malignancy in either breast. IMPRESSION: 1. No mammographic evidence of malignancy. 2. Recommend routine screening mammography in one year. BI-RADS Category 1: Negative Reviewed, dictated and finalized at location A. LINE INSPECTOR
== END ==
PROVIDERS: PCP Family Medicine; Visit Provider Obstetrics & Gynecology
DX: Z12.31 Encounter for screening mammogram for malignant neoplasm of breast (principal)
CPT/HCPCS: 77063; 77067

== ENCOUNTER 2022-06-21 09:42 | Outpatient (CLI) | payer OTHER, SELFPAY ==
[2022-06-21 09:59] LABS: Basophils Percent Auto 0.8 % (0.2-1.2); Eosinophils Absolute Auto 0.1 K/mm3 (0-0.3); Eosinophils Percent Auto 1.5 % (0-4.4); Hematocrit 41.2 % (37.0-47.0); Hemoglobin 13.9 g/dL (12.0-15.0); Immature Granulocyte Absolute 0.01 K/mm3 (0.00-0.031); Immature Granulocyte Percent A 0.3 % (0-0.5); Lymphocytes Percent Auto 30.2 % (18.3-44.2); Mean Corpuscular HGB Conc 33.7 g/dl (32-36); Mean Corpuscular Hemoglobin 31.9 pg (26-34); Mean Corpuscular Volume 94.5 fl (80-100); Mean Platelet Volume 9.9 fl (7.4-10.4); Monocytes Absolute Auto 0.3 K/mm3 (0.1-0.6); Monocytes Percent Auto 6.8 % (2.6-8.5); Neutrophils Absolute Auto 2.4 K/mm3 (1.3-6.7); Neutrophils Percent Auto 60.4 % (45.5-73.1); Platelet Count Result 167 k/mm3 (150-375); Red Blood Count 4.36 M/mm3 (4.2-5.4)
[2022-06-21 10:11] LABS: Alanine Aminotransferase 23 U/L (6-35); Albumin Level 4.3 g/dL (3.5-5.1); Alkaline Phosphatase 82 U/L (38-126); Anion Gap 7 mmol/L (8-16); Aspartate Amino Transferase 27 U/L (14-36); Bilirubin,Total 0.5 mg/dL (0.2-1.3); Blood Urea Nitrogen 9 mg/dL (7-17); Carbon Dioxide 29 mmol/L (22-30); Chloride 102 mmol/L (98-107); Cholesterol 239 mg/dL (0-200); Estimated Glomerular Filt Rate > 60; Glucose 99 mg/dL (65-110); HDL Direct 53 mg/dL; Potassium 4.3 mmol/L (3.4-5.0); Sodium 138 mmol/L (137-145); Triglycerides 173 mg/dL (<150)
[2022-06-21 10:22] LABS: LDL Cholesterol Direct 136 mg/dL
== END 2022-06-21 09:43 | disposition home or self-care (01) ==
PROVIDERS: PCP Family Medicine; Visit Provider Nurse Practitioner Family
DX: R63.4 Abnormal weight loss (principal); R10.9 Unspecified abdominal pain; K31.84 Gastroparesis
CPT/HCPCS: 36415; 80053; 80061; 84443; 85025

== ENCOUNTER 2022-10-30 11:01 | Outpatient (CLI) | payer OTHER, SELFPAY ==
[2022-10-30 11:47] LABS: Eosinophils Absolute Auto 0.1 K/mm3 (0-0.3); Eosinophils Percent Auto 1.7 % (0-4.4); Lymphocytes Absolute Auto 1.95 K/mm3 (0.9-3.2); Lymphocytes Percent Auto 47.4 % (18.3-44.2); Mean Corpuscular HGB Conc 34.1 g/dl (32-36); Mean Corpuscular Hemoglobin 31.7 pg (26-34); Mean Corpuscular Volume 92.8 fl (80-100); Mean Platelet Volume 10.6 fl (7.4-10.4); Monocytes Absolute Auto 0.3 K/mm3 (0.1-0.6); Monocytes Percent Auto 7.5 % (2.6-8.5); Neutrophils Absolute Auto 1.7 K/mm3 (1.3-6.7); Neutrophils Percent Auto 42.4 % (45.5-73.1); Platelet Count Result 211 k/mm3 (150-375); Red Blood Count 4.42 M/mm3 (4.2-5.4); Red Cell Distribution Width 12.2 % (11.5-14.5); White Blood Count 4.1 K/mm3 (4.5-10.0)
[2022-10-30 12:03] LABS: Iron 91 ug/dL (37-170)
[2022-10-30 12:10] LABS: Alanine Aminotransferase 20 U/L (6-35); Albumin Level 4.1 g/dL (3.5-5.1); Alkaline Phosphatase 97 U/L (38-126); Anion Gap 5 mmol/L (8-16); Aspartate Amino Transferase 28 U/L (14-36); Bilirubin,Total 0.5 mg/dL (0.2-1.3); Blood Urea Nitrogen 9 mg/dL (7-17); Calcium 8.7 mg/dL (8.4-10.2); Carbon Dioxide 32 mmol/L (22-30); Chloride 102 mmol/L (98-107); Estimated Glomerular Filt Rate 60; Glucose 79 mg/dL (65-110); Potassium 3.9 mmol/L (3.4-5.0); Sodium 139 mmol/L (137-145)
[2022-10-30 12:15] LABS: Percent Iron Saturation 31 % (20-50)
[2022-10-30 13:09] LABS: Folic Acid 19.3 ng/mL (2.76->20)
== END 2022-10-30 11:02 | disposition home or self-care (01) ==
LOC: ANHLAB 11:04
PROVIDERS: PCP Family Medicine; Visit Provider Internal Medicine Hematology & Oncology
DX: D72.819 Decreased white blood cell count, unspecified (principal)
CPT/HCPCS: 36415; 80053; 82607; 82728; 82746; 83540; 83550; 85025; 86038

== ENCOUNTER 2024-05-04 20:25 | Observation (INO) | payer OTHER, SELFPAY ==
--- NOTE | ~2024-05-04 | CT_ITS ---
EXAMINATION: CT abdomen pelvis w con DATE: 05/05/2024 00:31 INDICATION: Nausea, vomiting, and diarrhea. TECHNIQUE: Computed tomography (CT) of the abdomen and pelvis was performed with 100 mL Omnipaque 350 intravenous contrast. Automated exposure control and iterative reconstruction technique were employe d. The dose-length product was 243.76 mGy-cm. COMPARISON: CT abdomen and pelvis 01/13/2020 FINDINGS: The visualized portions of the lung bases are clear without pneumonia or pleural effusion. The heart size is normal. No pericardial effusion. There is a 5 mm cyst in the liver. The gallbladder , spleen, pancreas, adrenal glands, and right kidney are normal. There is mild atrophy of left kidney . There are no dilated loops of bowel. The appendix is not visualized. There are no pathologically en larged lymph nodes. The left periuterine veins and ovarian vein are enlarged, consistent with pelvic venous insufficiency. There is physiologic fluid in the pelvis. There is lumbar dextrocurvature. IMPRESSION: 1. Pelvic venous insufficiency. Reviewed, dictated and finalized at location A.
[2024-05-04 20:27] VITALS: BP 122/102; PULSE 70; RESP 17; TEMP 36.4; O2SAT 98
[2024-05-04 20:56] LABS: Basophils Percent Auto 0.5 % (0.2-1.2); Eosinophils Percent Auto 0.5 % (0-4.4); Hematocrit 39.2 % (37.0-47.0); Hemoglobin 13.7 g/dL (12.0-15.0); Immature Granulocyte Absolute 0.01 K/mm3 (0.00-0.031); Immature Granulocyte Percent A 0.1 % (0-0.5); Lymphocytes Absolute Auto 1.47 K/mm3 (0.9-3.2); Mean Corpuscular HGB Conc 34.9 g/dl (32-36); Mean Corpuscular Hemoglobin 31.8 pg (26-34); Monocytes Absolute Auto 0.5 K/mm3 (0.1-0.6); Monocytes Percent Auto 6.3 % (2.6-8.5); Neutrophils Absolute Auto 5.7 K/mm3 (1.3-6.7); Neutrophils Percent Auto 73.6 % (45.5-73.1); Platelet Count Result 269 k/mm3 (150-375); Red Blood Count 4.31 M/mm3 (4.2-5.4); Red Cell Distribution Width 12.4 % (11.5-14.5); White Blood Count 7.7 K/mm3 (4.5-10.0)
[2024-05-04 20:57] LABS: BEDSIDEPREGUCG Negative
[2024-05-04 21:02] LABS: Add Urine Microscopic? YES; Appearance Urine Clear (Clear); Bacteria Urine None Seen /hpf; Bilirubin Urine Negative (Negative); Blood Urine Negative (Negative); Color Urine Yellow (Yellow); Glucose Urine UA Negative (Negative); Ketones Urine Negative (Negative); Leukocyte Esterase Ur Trace LEU/UL (Negative); Nitrate Urine Negative (Negative); Non Pathogenic Casts 0-2; Protein Urine Negative (Negative); RBC Urine 0-2 /hpf (0-2); Specific Grav Ur 1.005 (1.001-1.035); Squamous Epithelial Cell Urine None Seen /hpf (Few); Urobilinogen Urine 0.2 mg/dL (<2.0); WBC Urine 0-5 /hpf (0-3)
[2024-05-04 21:04] LABS: Alanine Aminotransferase 18 U/L (6-35); Albumin Level 4.5 g/dL (3.5-5.1); Alkaline Phosphatase 110 U/L (38-126); Anion Gap 10 mmol/L (4-12); Aspartate Amino Transferase 28 U/L (14-36); Bilirubin,Total 0.4 mg/dL (0.2-1.3); Blood Urea Nitrogen 11 mg/dL (7-17); Calcium 9.2 mg/dL (8.4-10.2); Carbon Dioxide 26 mmol/L (22-30); Chloride 99 mmol/L (98-107); Estimated CRCL calculation 57 ml/min; Estimated Glomerular Filt Rate > 60; Glucose 113 mg/dL (65-110); Lipase 85 U/L (23-300); Potassium 3.6 mmol/L (3.4-5.0); Sodium 135 mmol/L (137-145)
[2024-05-04] MEDS: SODIUM CHLORIDE 0.9% IV 1,000 ML 999 ML IV CONT (22:47)
--- NOTE | 2024-05-04 22:47 | ED.NAVMDI ---
HPI - Nausea/Vomiting/Diarrhea General Chief complaint: Nausea/Vomiting/Diarrhea <UMU Lucas Last Filed: 05/08/24 17:40> Stated complaint: n/v/d <UMU Lucas Last Filed: 05/08/24 17:40> Time Seen by Provider: 05/04/24 22:13 <UMU Lucas Last Filed: 05/08/24 17:40> Source: patient <UMU Lucas Last Filed: 05/08/24 17:40> Mode of arrival: ambulatory <UMU Lucas Last Filed: 05/08/24 17:40> Limitations: no limitations <UMU Lucas Last Filed: 05/08/24 17:40> History of Present Illness HPI Narrative: This is a 48-year-old female that presents to the emergency department for nausea and vomiting. On since about 5:00 p.m.. Does also report some diarrhea. Reports history of gastroparesis. Follows with Dr. May. Reports she has not able take her Reglan tonight. Denies fevers, dysuria, or hematuria. <UMU Lucas Last Filed: 05/08/24 17:40> Related Data Home medications: Home Medications Medication Instructions Recorded Confirmed ondansetron 4 mg disintegrating 4 mg PO Q4H PRN Nausea And Vomiting 05/04/24 05/05/24 tablet metoclopramide HCl 5 mg tablet 5 mg PO TIDWM 05/05/24 05/05/24 <UMU Lucas Last Filed: 05/08/24 17:40> Allergies/Adverse reactions: Allergies Allergy/AdvReac Type Severity Reaction Status Date / Time No Known Allergies Allergy Unknown Verified 05/05/24 06:48 <UMU Lucas Last Filed: 05/08/24 17:40> Review of Systems Review of Systems: CONSTITUTIONAL: Denies fever GASTROINTESTINAL: Reports nausea, vomiting, and diarrhea. Denies abdominal pain. GENITOURINARY: Denies dysuria or hematuria. <UMU Lucas Last Filed: 05/08/24 17:40> All systems reviewed & are unremarkable except as noted in HPI and below <Naye Camacho PA-C - Last Filed: 05/08/24 17:40> [facility] Past Medical History Medical History: Medical History Body mass index (BMI) less than 20 Colon cancer screening Gastroparesis No acute medical problems Occult blood positive stool Weight loss, non-intentional (~11/2019) <Naye Camacho PA-C - Last Filed: 05/08/24 17:40> Surgical History Surgical History: Surgical History History of partial thyroidectomy <Naye Camacho PA-C - Last Filed: 05/08/24 17:40> Family History Family History: Family History Father No problems noted. Mother Diabetes mellitus Sibling No problems noted. Grandparent Family history of malignant neoplasm of breast Other Family history of coronary artery disease <Naye Camacho PA-C - Last Filed: 05/08/24 17:40> Social History Social History: Social History (Updated 05/05/24 @ 10:40 by Brien Baker MD) Social History: Full Code Nominates her to be the individual to make medical decisions for her if she is unable Smoking status: Never smoker Second hand tobacco smoke exposure: No Alcohol intake: never Substance use: never Substance use type: does not use Do You Feel Safe in your Home?: Yes Lack of Transportation: No Lack of Food: Never True Current Housing: I Have Housing Concerned About Future Housing: No Difficulty Paying Gas/Electric Bills: No Difficulty Paying for Meds: No Currently Unemployed: No Education: High School Diploma/GED Difficulty w/ Childcare or Family Care: YES Living arrangements: with family Occupation/Education: occupation 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
[2024-05-04 22:57] VITALS: BP 103/65; PULSE 74; RESP 18; O2SAT 98
[2024-05-04] MEDS: METOCLOPRAMIDE HCL INJ 10 MG/2 ML VIAL IV PUSH (23:01)
[2024-05-04] MEDS: diphenhydrAMINE HCl INJ 50 MG/ML VIAL 25 MG IV PUSH (23:01)
[2024-05-05] VITALS (9 sets, daily range): BP systolic 92–106; BP diastolic 52–78; PULSE 55–89; RESP 12–20; TEMP 36.4–36.8; O2SAT 96–100
[2024-05-05] MEDS: PANTOPRAZOLE SODIUM IV 40 MG VIAL IV PUSH ×2 (00:16→10:08)
[2024-05-05] MEDS: ONDANSETRON INJ 4 MG/2 ML VIAL IV PUSH ×4 (00:16→23:16)
[2024-05-05] MEDS: SODIUM CHLORIDE 0.9% IV 1,000 ML 999 ML IV CONT (01:44)
[2024-05-05] MEDS: HALOPERIDOL LACTATE 5 MG/ML VIAL IM (02:13)
--- NOTE | 2024-05-05 06:26 | PC.NURSE ---
Report called to RAMSES Gordon. Pt to be taken to floor after admission assessment is completed by RAMSES Gonsalez.
[2024-05-05] MEDS: METOCLOPRAMIDE HCL INJ 10 MG/2 ML VIAL IV PUSH ×3 (06:33→18:27)
--- NOTE | 2024-05-05 07:05 | ADMGEN ---
This patient, Nazanin Acevedo, was admitted to Medical Room 261-01. Patient/family oriented to hospital policies and general routines including ID bracelet, bed and alarms, visiting hours, pain management, procedures, bathroom and other care routines, personal items, smoking policy, room service/diet, and visiting hours. Information on how to activate the Rapid Response Team has been discussed. Patient/Family are encouraged to report perceived risks to care and to ask questions if they do not understand what they are told or what they should do.
[2024-05-05] MEDS: LACTATED RINGERS 1,000 ML 125 ML IV CONT ×2 (08:24→16:47)
--- NOTE | 2024-05-05 09:15 | P.CONGI_ITS ---
I, Anatoly May MD, have provided a substantive portion of the care of this patient and discussed the patient with my Nurse Practitioner. I have reviewed any new relevant radiographic and laboratory results including medications. I agree with her documentation as noted below.?I personally performed the medical decision making and much of the history and exam for this encounter. briefly, she was diagnosed with gastroparesis in 2019 taking reglan but did not have gastric empyting study until 2019 that was normal however she was already on treatment. Last EGD 2019 mild gastritis. Here with intractable n/v since yesterday, still feeling sick, cbc no major findings, CT scan no acute gi issues. Plan is antiemetics, liquid diet as tolerated, reglan, ppi. She prefers to hold off on EGD for now since she is so sick. She denies use of marijuana. Assessment and Plan Assessment and plan (1) Gastroparesis: Code(s): K31.84 - Gastroparesis Status: Acute (2) Nausea: Code(s): R11.0 - Nausea Status: Acute (3) Vomiting: Qualifiers: Vomiting type: bilious vomiting Nausea presence: with nausea Qualified Code(s): R11.14 - Bilious vomiting Code(s): R11.10 - Vomiting, unspecified Status: Acute Plan 1. Nausea/vomiting/gastroparesis: Last EGD 02/10/2020 showed mild gastritis biopsies were negative for H pylori. Colonoscopy 02/10/2020 showed torturous colon and small internal hemorrhoids but otherwise unremarkable. Per patient she was diagnosed with gastroparesis in 2019 but there is no diagnostic testing to confirm this. Gastric emptying study in February of 2020 was normal. Prior to starting Reglan the patient states that she was experiencing postprandial abdominal pain and weight loss especially if she ate any form of solid food. Patient states that her lowest weight was 98 lbs, weight this admission 115 lb. She states that yesterday around 6:00 p.m. she started having nausea and after proceeding to the emergency room she started having episodes of vomiting. She has had mild improvement of symptoms with antiemetics but not complete resoluti on. Denies any reflux symptoms, appetite loss, weight loss, or early satiety recently. She is having daily bowel movements that are formed and non urgent. Exam unremarkable. Labs show no electrolyte abnormalities or signs of dehydration. CT abdomen/pelvis with contrast shows no bowel obstruction or other acute intra-abdominal process. DDX: Gastroparesis vs Gastritis/PUD vs IBD vs SMA vs functional vs gallbladder dysfunction. * EGD today * NPO diet now * Continue Reglan * Zofran 4 mg IV Q 6hrs PRN * Start Protonix IV 40 mg daily * Check calprotectin * Check thyroid function * If workup unremarkable, consider HIDA scan to evaluate gallbladder function Thank you very much for allowing me to share in the care of this very nice patient. This report may have been done utilizing a voice recognition system. Attempts have been made to correct errors. However, there may be uncorrected grammatical, spelling, and recognition errors present. GI Consult Note Consult date/time: 05/05/24 09:15 Reason for consult: Gastroparesis HPI: This is a pleasant 48 year old female with a past medical surgical history of gastroparesis, gastritis and partial thyroidectomy she presented to the ER room 05/04/2024 with complaints of nausea and vomiting. GI consulted for gastroparesis. The patient was last seen in the GI office by Dr. Zendejas 01/29/2024 at which time she was doing well on Reglan. Patient was initially diagnosed with gastroparesis in
--- NOTE | 2024-05-05 09:15 | WPDGICN ---
Assessment and Plan Assessment and plan (1) Gastroparesis: Code(s): K31.84 - Gastroparesis Status: Acute (2) Nausea: Code(s): R11.0 - Nausea Status: Acute (3) Vomiting: Qualifiers: Vomiting type: bilious vomiting Nausea presence: with nausea Qualified Code(s): R11.14 - Bilious vomiting Code(s): R11.10 - Vomiting, unspecified Status: Acute Plan 1. Nausea/vomiting/gastroparesis: Last EGD 02/10/2020 showed mild gastritis biopsies were negative for H pylori. Colonoscopy 02/10/2020 showed torturous colon and small internal hemorrhoids but otherwise unremarkable. Per patient she was diagnosed with gastroparesis in 2019 but there is no diagnostic testing to confirm this. Gastric emptying study in February of 2020 was normal. Prior to starting Reglan the patient states that she was experiencing postprandial abdominal pain and weight loss especially if she ate any form of solid food. Patient states that her lowest weight was 98 lbs, weight this admission 115 lb. She states that yesterday around 6:00 p.m. she started having nausea and after proceeding to the emergency room she started having episodes of vomiting. She has had mild improvement of symptoms with antiemetics but not complete resolution. Denies any reflux symptoms, appetite loss, weight loss, or early satiety recently. She is having daily bowel movements that are formed and non urgent. Exam unremarkable. Labs show no electrolyte abnormalities or signs of dehydration. CT abdomen/pelvis with contrast shows no bowel obstruction or other acute intra-abdominal process. DDX: Gastroparesis vs Gastritis/PUD vs IBD vs SMA vs functional vs gallbladder dysfunction. EGD today NPO diet now Continue Reglan Zofran 4 mg IV Q 6hrs PRN Start Protonix IV 40 mg daily Check calprotectin Check thyroid function If workup unremarkable, consider HIDA scan to evaluate gallbladder function Thank you very much for allowing me to share in the care of this very nice patient. This report may have been done utilizing a voice recognition system. Attempts have been made to correct errors. However, there may be uncorrected grammatical, spelling, and recognition errors present. GI Consult Note Consult date/time: 05/05/24 09:15 Reason for consult: Gastroparesis HPI: This is a pleasant 48 year old female with a past medical surgical history of gastroparesis, gastritis and partial thyroidectomy she presented to the ER room 05/04/2024 with complaints of nausea and vomiting. GI consulted for gastroparesis. The patient was last seen in the GI office by Dr. Zendejas 01/29/2024 at which time she was doing well on Reglan. Patient was initially diagnosed with gastroparesis in 2018. Most recent gastric emptying study February of 2020 was normal but she was already on Reglan. The patient reports that prior to her diagnosis in 2019, she was having abdominal pain, weight loss, appetite loss, and pain after eating. These symptoms were present for a couple months before she was diagnosed. Her lowest weight during that time was 98 lbs, with her normal baseline weight being around 113 lbs. She has been able to gain weight since starting Reglan and is now able to eat solid foods without issues. She denies any current abdominal pain. She reports having one episode of vomiting since being in the ER, and states the nausea has improved a little bit off and on with medications. She denies abdominal bloating, dysphagia, odynophagia, or heartburn. Appetite is poor. Denies unintentional weight loss. Bowel movements occur daily and are formed, without urgency, accidents, or blood. Denies NSAID or anticoagulant use. ENDOSCOPY HISTORY: EGD: 02/10/[address] Zendejas for weight loss, nausea and vomiting Findings: In the whole esophagus, no abnormalities were seen. No esophagitis or strictures The GE junction was located 40 cm from the incisors In the whole stomac
--- NOTE | 2024-05-05 10:19 | PM.IMHP ---
H&P: HPI History of Present Illness Date/Time: 05/05/24 10:19 Chief Complaint: Nausea Narrative: 48yo female with gastroparesis who presents with nausea. Patient was diagnosed with gastroparesis in 2019. She had an EGD 02/10/20 showing gastritis. Biopsies taken showing no pathologic abnormalities. Colonoscopy on that day showing internal hemorrhoids. She had a gastric emptying scan 02/17/20 that was normal. She is on chronic Reglan that shetakes TID (morning, 3PM and bedtime) and has been on this regiment for years. She was doing well untill a few weeks ago while in [place] on vacation when she developed nausea and vomiting requiring hospitalization for 2 days. She was treated with IV fluids and IV Reglan. Patient again developed nausea around 6pm last night. She was mike to tolerate breakfast, lunch and dinner prior to onset of symptoms. No symptoms prior and had been feeling well. Specifically, no fever, chills, headaches, chest pain, palpitations, SOB, cough, abd pain, diarrhea, constipation, dysuria or hematuria. No hematemesis, melena or hematochezia. No new medications. No recent [id number] medications. To Zofran around 7:00 p.m. with some benefit. She had been taking Reglan that day. Because of persistent nausea, patient presented to the emergency room for evaluation. She states that she developed emesis when she was emergency room. In the emergency department, patient was hemodynamically stable. Bedside urine test was negative. CT of the abdomen pelvis showed pelvic venous insufficiency which had been noted on a prior CT in 2019. CBC, CMP lipase all normal except for a sodium 135 and a glucose of 113 urinalysis was clear. She was treated with Reglan IV, Benadryl IV, IV fluids, Zofran, Protonix and Haldol. She was admitted for further care. Review of Systems Review of Systems: All systems reviewed & are unremarkable except as noted in HPI and below PMFSH Past Medical History Medical History Body mass index (BMI) less than 20 Colon cancer screening Gastroparesis No acute medical problems Occult blood positive stool Weight loss, non-intentional (~11/2019) Surgical History Surgical History History of partial thyroidectomy Family History Family History Father No problems noted. Mother Diabetes mellitus Sibling No problems noted. Grandparent Family history of malignant neoplasm of breast Other Family history of coronary artery disease Social History Social History (Updated 05/05/24 @ 10:40 by Brien Baker MD) Social History: Full Code Nominates her to be the individual to make medical decisions for her if she is unable Smoking status: Never smoker Second hand tobacco smoke exposure: No Alcohol intake: never Substance use: never Substance use type: does not use Do You Feel Safe in your Home?: Yes Lack of Transportation: No Lack of Food: Never True Current Housing: I Have Housing Concerned About Future Housing: No Difficulty Paying Gas/Electric Bills: No Difficulty Paying for Meds: No Currently Unemployed: No Education: High School Diploma/GED Difficulty w/ Childcare or Family Care: YES Living arrangements: with family Occupation/Education: occupation 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
[2024-05-05 12:11] LABS: CRP < 0.5 mg/dL (<1.0)
--- NOTE | 2024-05-05 14:13 | SUR.PREOP ---
RN went to get patient for procedure and patient refusing at this time. Education provided. MD notified. Patient procedure cancelled.
[2024-05-05 16:47] LABS: T4 Thyroxine 7.25 ug/dL (5.53-11.0)
[2024-05-06] MEDS: LACTATED RINGERS 1,000 ML 125 ML IV CONT ×3 (00:13→15:56)
[2024-05-06] MEDS: METOCLOPRAMIDE HCL INJ 10 MG/2 ML VIAL IV PUSH ×4 (00:13→17:06)
[2024-05-06 05:41] VITALS: BP 104/60; PULSE 60; RESP 20; TEMP 36.2; O2SAT 92
[2024-05-06] MEDS: PANTOPRAZOLE SODIUM IV 40 MG VIAL IV PUSH (08:15)
[2024-05-06 08:32] VITALS: O2SAT 96
[2024-05-06 14:00] VITALS: BP 101/64; PULSE 55; RESP 16; TEMP 36.7; O2SAT 97
--- NOTE | 2024-05-06 14:12 | WPDGIPROGNO ---
Progress Note: A&P Assessment and Plan (1) Intractable nausea and vomiting: Code(s): R11.2 - Nausea with vomiting, unspecified Status: Acute Assessment and Plan: better with medical treatment egd tomorrow to assess if ulcer, esophagitis, etc (2) Gastroparesis: Code(s): K31.84 - Gastroparesis Status: Acute Subjective Date/time seen: 05/06/24 14:12 Interval history: slowly feeling better and tolerating more liquid diet she is willing to have EGD tomorrow Review of Systems Review of Systems: All systems reviewed & are unremarkable except as noted in HPI and below Exam Const: General: comfortable and no acute distress HENMT: Face/Nose/Sinus: Normal nares present Eyes: General: appearance normal, both eyes and all related structures Neck: Neck: no JVD Resp: Auscultation: clear to auscultation bilaterally Cardio: Rate: regular rate Rhythm: regular rhythm GI: Inspection: non-distended GI Palp: Yes Soft to palpation and No Tenderness to palpation present (GI) Auscultation: normal bowel sounds Skin: General skin exam: normal color Neuro: General: gait normal Speech: normal speech Extrem: General: normal to inspection Psych: Mental Status: mental status grossly normal Objective Data Vital Signs Vital Signs: Vital Signs - 24 hr 05/05/24 20:28 05/06/24 05:41 05/06/24 08:32 Temperature 97.5 F L 97.1 F L Pulse Rate 56 L 60 Respiratory Rate 20 20 Blood Pressure 97/58 L 104/60 Pulse Oximetry 97 92 96 Oxygen Delivery Room Air Fraction of Inspired Oxygen 21 Intake/Output Intake/Output: Intake & Output 05/03/24 05/04/24 05/05/24 05/06/24 23:59 23:59 23:59 23:59 Intake Total 1000 1999 1929.2 Output Total 1 Balance 1000 19989.2 Meds/Results Medications: Active Medications Generic Name Dose Route Start Last Admin Trade Name Freq PRN Reason Stop Dose Admin Lactated Ringer's 1,000 mls @ 125 mls/hr 05/05/24 05:55 05/06/24 08:14 Lr - Lactated Ringers Iv IV CONT 125 mls/hr .Q8H TARYN Administration Metoclopramide HCl 10 mg 05/05/24 06:00 05/06/24 11:02 Metoclopramide Hcl Inj 10 Mg/2 Ml Vial IV PUSH 10 mg Q6HR TARYN Administration Ondansetron HCl 4 mg 05/05/24 09:49 05/05/24 23:16 Ondansetron Inj 4 Mg/2 Ml Vial IV PUSH 4 mg Q6H PRN Administration Nausea And Vomiting Pantoprazole Sodium 40 mg 05/05/24 09:00 05/06/24 08:15 Pantoprazole Sodium Iv 40 Mg Vial IV PUSH 40 mg QAM TARYN Administration Radiology Results: ITS Impressions Abdomen/Pelvis CT 05/05/24 06:46 IMPRESSION: 1. Pelvic venous insufficiency. Labs Labs: Laboratory Results - last 24 hr 05/05/24 10:32 Thyroxine (T4) 7.25
--- NOTE | 2024-05-06 14:49 | PM.IMPN ---
Progress Note: A&P Assessment and Plan (1) Intractable nausea and vomiting: Code(s): R11.2 - Nausea with vomiting, unspecified Status: Acute Assessment and Plan: Patient presents with nausea. Probably related to her known gastroparesis although her gastric emptying scan was read as normal 2019. Blood pressure is low but felt this is probably more likely her baseline blood pressure. Will continue IV fluids but try to reduce rate. Continue IV Reglan. Continue IV Protonix. GI has been consulted and appreciate their input. Continue full liquid diet. NPO after midnight for EGD in the morning. (2) Gastroparesis: Code(s): K31.84 - Gastroparesis Status: Acute Assessment and Plan: Reglan resumed. As above Plan DVT prophylaxis - SCDs Code status - full Subjective Date/time seen: 05/06/24 14:49 Interval history: 48yo female with gastroparesis who presents with nausea. Patient slept poorly. Had nausea and vomiting last night. She is tolerating clear liquids today and had only apple sauce for lunch. Exam Narrative: AF 97.1 104/60 60 20 96% ra Gen - thin female in NARD Chest - CTA bilaterally, nml RR CV - RRR. S1-S2. Abd - soft. Nontender. Nondistended. Positive bowel sounds. Ext - no pedal edema Psych - normal mood and affect. Skin - warm and dry. Objective Data Vital Signs Vital Signs: Vital Signs - 24 hr 05/05/24 20:28 05/06/24 05:41 05/06/24 08:32 Temperature 97.5 F L 97.1 F L Pulse Rate 56 L 60 Respiratory Rate 20 20 Blood Pressure 97/58 L 104/60 Pulse Oximetry 97 92 96 Oxygen Delivery Room Air Fraction of Inspired Oxygen 21 Intake/Output Intake/Output: Intake & Output 05/03/24 05/04/24 05/05/24 05/06/24 23:59 23:59 23:59 23:59 Intake Total 1000 1999 1928.2 Output Total 1 Balance 1000 1998 1928.2 Meds/Results Medications: Active Medications Generic Name Dose Route Start Last Admin Trade Name Freq PRN Reason Stop Dose Admin Lactated Ringer's 1,000 mls @ 125 mls/hr 05/05/24 05:55 05/06/24 08:14 Lr - Lactated Ringers Iv IV CONT 125 mls/hr .Q8H TARYN Administration Metoclopramide HCl 10 mg 05/05/24 06:00 05/06/24 11:02 Metoclopramide Hcl Inj 10 Mg/2 Ml Vial IV PUSH 10 mg Q6HR TARYN Administration Ondansetron HCl 4 mg 05/05/24 09:49 05/05/24 23:16 Ondansetron Inj 4 Mg/2 Ml Vial IV PUSH 4 mg Q6H PRN Administration Nausea And Vomiting Pantoprazole Sodium 40 mg 05/05/24 09:00 05/06/24 08:15 Pantoprazole Sodium Iv 40 Mg Vial IV PUSH 40 mg QAM TARYN Administration Radiology Results: ITS Impressions Abdomen/Pelvis CT 05/05/24 06:46 IMPRESSION: 1. Pelvic venous insufficiency. Labs Labs: Laboratory Results - last 24 hr 05/05/24 10:32 Thyroxine (T4) 7.25
[2024-05-06 20:13] VITALS: BP 110/67; PULSE 49; RESP 16; TEMP 36.6; O2SAT 98
[2024-05-07] MEDS: LACTATED RINGERS 1,000 ML 125 ML IV CONT ×3 (00:04→10:15)
[2024-05-07] MEDS: METOCLOPRAMIDE HCL INJ 10 MG/2 ML VIAL IV PUSH ×4 (00:05→17:26)
[2024-05-07 05:19] VITALS: BP 107/73; PULSE 90; RESP 18; TEMP 36.6; O2SAT 97
[2024-05-07] MEDS: PANTOPRAZOLE SODIUM IV 40 MG VIAL IV PUSH (08:32)
[2024-05-07 10:15] VITALS: BP 109/74; PULSE 50; RESP 16; TEMP 36.1; O2SAT 99
--- NOTE | 2024-05-07 10:19 | WPDANESEPPF ---
Anes - Initial Pre Proc Eval Procedure: Operation Date: 05/05/24 17:15 Proposed Procedures p Esophagogastroduodenoscopy - Anatoly May MD Operation Date: 05/07/24 16:00 Proposed Procedures p Esophagogastroduodenoscopy - Anatoly May MD Date/Time: 05/07/24 10:19 Surgeon: Meliza Mendez DO Pre Op Diagnosis: Gastroparesis Patient Data Age: 48 Gender: F Height: 1.65 m Weight: 52.5 kg Last Vital Signs Temp 97.9 F 05/07/24 05:19 Pulse 90 05/07/24 05:19 Resp 18 05/07/24 05:19 BP 107/73 05/07/24 05:19 Pulse Ox 97 05/07/24 05:19 O2 Del Method Room Air 05/06/24 08:32 FiO2 21 05/06/24 08:32 Allergies Allergy/AdvReac Type Severity Reaction Status Date / Time No Known Allergies Allergy Unknown Verified 05/05/24 06:48 Home Medications Medication Instructions Recorded Confirmed Type ondansetron 4 mg disintegrating 4 mg PO Q4H PRN Nausea And Vomiting 05/04/24 05/05/24 History tablet metoclopramide HCl 5 mg tablet 5 mg PO TIDWM 05/05/24 05/05/24 History Patient hx anesthesia problems: none Family hx anesthesia problems: none Results Review: All pre-operative results and documents have been reviewed as part of the pre-operative evaluation. [facility] Past Medical History Medical History Body mass index (BMI) less than 20 Colon cancer screening Gastroparesis No acute medical problems Occult blood positive stool Weight loss, non-intentional (~11/2019) Surgical History Surgical History History of partial thyroidectomy Family History Family History Father No problems noted. Mother Diabetes mellitus Sibling No problems noted. Grandparent Family history of malignant neoplasm of breast Other Family history of coronary artery disease Social History Social History (Updated 05/05/24 @ 10:40 by Brien Baker MD) Social History: Full Code Nominates her to be the individual to make medical decisions for her if she is unable Smoking status: Never smoker Second hand tobacco smoke exposure: No Alcohol intake: never Substance use: never Substance use type: does not use Do You Feel Safe in your Home?: Yes Lack of Transportation: No Lack of Food: Never True Current Housing: I Have Housing Concerned About Future Housing: No Difficulty Paying Gas/Electric Bills: No Difficulty Paying for Meds: No Currently Unemployed: No Education: High School Diploma/GED Difficulty w/ Childcare or Family Care: YES Living arrangements: with family Occupation/Education: occupation 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 Informed Consent: The patient's anesthetic plan and its attendant risks and benefits were discussed with the patient/family/POA. Questions were solicited and answers provided to the satisfaction of the patient/family/POA.
[2024-05-07] MEDS: LACTATED RINGERS 1,000 ML 150 ML IV CONT (10:35)
[2024-05-07 10:38] VITALS: BP 86/50; PULSE 45; RESP 25; O2SAT 99
[2024-05-07 10:48] VITALS: BP 106/64; PULSE 43; RESP 25; O2SAT 100
[2024-05-07 10:58] VITALS: BP 109/70; PULSE 43; RESP 22; O2SAT 100
[2024-05-07 13:58] VITALS: BP 112/66; PULSE 69; RESP 16; TEMP 36.4; O2SAT 98
--- NOTE | 2024-05-07 16:33 | PM.DS ---
DS: Admitting Diagnosis Discharge Date 05/07/2024 Admitting Diagnosis Nausea DS: Discharge Diagnosis Discharge Diagnosis (1) Intractable nausea and vomiting: Code(s): R11.2 - Nausea with vomiting, unspecified Status: Acute (2) Gastroparesis: Code(s): K31.84 - Gastroparesis Status: Acute DS: Summary Hospital Course Hospital Course: patient with presented with nauseas and vomiting with history of gastroparesis since 2019, her symptoms were worsening was seen by GI started the patient on liquid diet which patient was tolerating to further evaluate patient had EGD was essentially normal without any obvious pathology, multiple biopsy were taken. patient was started on PPI BID which is helping and today patient is able to tolerate her diet and feel her nausea has improved, patient is clinically stable, will discharge patient today to follow up with her GI. Time Spent with Patient Time attestation: Total time spent providing and/or coordinating discharge services: Exam Narrative: Patient is comfortable, NAD HEENT: eyes are clear and none icteric LUNGS:CTA HEART: RR S1S2 ABD: BS+, Soft and nontender Lower extremities: no edema SKIN: nonjaundiced Neuro: grossly intact. DS: Data Data Completed and Pending Pending studies at discharge: Pending at discharge 05/07/24 10:33 Surgical [PTH] Routine Discharge Plan Discharge Attending physician on discharge: Meliza Mendez Consulting providers: Chan Kaur; Pati Haley; Gino Lopez V.; Brien Baker; Danyel Womack; Anatoly May Discharging Clinician: Ramandeep James Patient Disposition: Home, Self-Care Activity: as tolerated Diet: as tolerated Discharge Instructions: patient to follow up with her GI as scheduled, and her primary care provider as soon as possible. Patient Instructions: Antibiotic Form, Gastroparesis (GEN) Stand Alone Forms: General Discharge Information, Work/School Release IP Follow-up/Referrals: Anatoly May MD [Physician] - Oswaldo Lane MD [Primary Care Provider] - Discharge Medications: New pantoprazole [Protonix] 40 mg tablet,delayed release (DR/EC) 40 mg PO BID 56 Days Qty: 112 0RF Continued ondansetron 4 mg tablet,disintegrating 4 mg PO Q4H PRN (Reason: Nausea And Vomiting) Date of admission: 05/05/24 05:52 Primary Care Provider: Oswaldo Lane Admitting Provider: Meliza Mendez Attending physician on admission: Ramandeep James Condition: Stable
[2024-05-09 18:53] LABS: Calprotectin, Stool 13 mcg/g
== END 2024-05-07 18:54 | disposition home or self-care (01) ==
LOC: ANHED 05-05 05:51 → ANH2MED 05-05 07:17
PROVIDERS: Emergency Medicine; Internal Medicine Gastroenterology; Nurse Practitioner Family; Admitting Provider Internal Medicine; Emergency Provider Physician Assistant; PCP Family Medicine; Visit Provider Family Medicine
PROC: 0DJ08ZZ Inspection of Upper Intestinal Tract, Via Natural or Artificial Opening Endoscopic (ICD-10-PCS; CPT 43235; principal; 2024-05-07 16:00)
DX: K31.84 Gastroparesis (principal); R11.14 Bilious vomiting
CPT/HCPCS: 43239; 36415; 74177; 80053; 81001; 81025; 83690; 83993; 84436; 84443; 85025; 86140; 88305; 96361; 96372; 96374; 96375; 99285; G0378; J1200; J1630; J2405; J2470; J2704; J2765; J7030; J7120; Q9967

== ENCOUNTER 2025-03-24 13:24 | Outpatient (CLI) | payer OTHER, SELFPAY ==
--- NOTE | ~2025-03-24 | MM_ITS ---
EXAMINATION: MM screening cinthya BI w francoise HISTORY: Screening TECHNIQUE: Craniocaudal and mediolateral oblique 3-D tomosynthesis images were obtained and synthetic 2-D images were generated. CAD analysis was submitted and interpreted. COMPARISON: 10/19/2020 BREAST PARENCHYMAL COMPOSITION: Dense: The breasts are extremely dense, which lowers the sensitivity of mammography. FINDINGS: There is no evidence of suspicious mass, calcification, or architectural distortion to sugg est malignancy in either breast. There has been no suspicious interval change. IMPRESSION: 1. No mammographic evidence of malignancy. 2. Recommend routine screening mammography in one year. BI-RADS Category 1: Negative Reviewed, dictated and finalized at location A.
== END 2025-03-24 13:25 | disposition home or self-care (01) ==
LOC: MICIMG 13:25
PROVIDERS: PCP Nurse Practitioner Family; Visit Provider Nurse Practitioner Family
DX: Z12.31 Encounter for screening mammogram for malignant neoplasm of breast (principal)
CPT/HCPCS: 77063; 77067